=== PATIENT | male | born 2000 | race Caucasian/White ===

== ENCOUNTER 2019-10-20 16:09 | Emergency (ER) | payer BC, SELFPAY ==
--- NOTE | ~2019-10-20 | XR_ITS ---
EXAMINATION: XR ankle LT min 3V EXAM DATE: 10/20/2019 16:56 INDICATION: Twisting injury, caught foot on step. TECHNIQUE: Left ankle frontal, lateral and oblique projections obtained and reviewed. There is no pr ior study for comparison. FINDINGS: The left ankle mortise appears intact. There are no acute fractures or dislocations ident ified. There is no subcutaneous gas. There is soft tissue swelling over the ankle anterolaterally. There are no radiopaque foreign bodies. IMPRESSION: 1. Left ankle exam without acute osseous findings. 2. Soft tissue swelling. Reviewed, dictated and finalized at location A.
[2019-10-20 16:25] VITALS: BP 138/70; PULSE 86; RESP 20; TEMP 36.9; O2SAT 100
--- NOTE | 2019-10-20 16:52 | ED.LOWEXIN ---
HPI - Extremity Injury (Lower) General Chief Complaint: Extremity Injury, Lower Stated Complaint: left ankle pain Time Seen by Provider: 10/20/19 16:55 Source: patient and RN notes reviewed Mode of arrival: ambulatory Limitations: no limitations History of Present Illness HPI Narrative: This is a 19 years old male presented office for evaluation of left ankle injury 10days ago. He accidentally rolled his left ankle coming down the stair at home. He went to get it check at [facility] following the injury. He had Xray; was told no fracture and release back to work with restriction; however his boss told him that he either work or take off since there is no light duty at his workplace, so he continues to work. He stands about 8-10hours a day. He does not have a primary care doctor; that's why he is here. Related Data Home Medications Medication Instructions Recorded Confirmed No Home Medications 10/20/19 10/20/19 Allergies Allergy/AdvReac Type Severity Reaction Status Date / Time No Known Allergies Allergy Verified 10/20/19 16:56 Review of Systems Review of Systems: Narrative: CONSTITUTIONAL: Denies feeling ill CARDIOVASCULAR: Denies chest injury RESPIRATORY: Denies dyspnea GASTROINTESTINAL: Denies nausea, vomiting SKIN: Reports athletic foot and resolved from wearing steel boots all the time MUSCULOSKELETAL: Reports left ankle pain, swelling NEUROLOGIC: Denies head injury at the time of accident. PMFSH Family History Family History Other Diabetes mellitus Social History Social History Smoking status: Never smoker Alcohol intake: never Comments At time of signature, I agree with nursing past medical, surgical, social and family history. There is no relevant family history pertinent to the presenting complaint. Exam Narrative: Exam Narrative: GENERAL: This is a well-nourished, well-developed patient, in no apparent distress. CARDIOVASCULAR: Regular rate and rhythm without murmurs, gallops, or rubs. RESPIRATORY: Clear to auscultation. Breath sounds equal bilaterally. No wheezes, rales, or rhonchi. NEURO: awake, alert, and oriented to person, place and time. There were no obvious focal neurologic abnormalities. EXTREMITIES: The left ankle is swollen and tender over the lateral aspect but the skin is intact and there is no ligamentous instability. There is no deformity. The foot and toes are warm and well-perfused. Sensation to pain and light touch is intact. The skin is intact; no warmth to palpation. NO calf tenderness. Course Vital Signs Vital signs: Vital Signs Temperature 98.4 F 10/20/19 16:25 Pulse Rate 86 10/20/19 16:25 Respiratory Rate 20 10/20/19 16:25 Blood Pressure 138/70 10/20/19 16:25 Pulse Oximetry 100 10/20/19 16:25 Temperature 98.4 F 10/20/19 16:25 Pulse Rate 86 10/20/19 16:25 Respiratory Rate 20 10/20/19 16:25 Blood Pressure 138/70 10/20/19 16:25 Pulse Oximetry 100 10/20/19 16:25 MDM - Extremity Injury (Lower) MDM Narrative Medical decision making narrative: I recommend that he takes off work; so he can keep his foot elevated to see if the swelling improved. However if it does not improved then he will need to follow up with Ortho to rule out ligament/tendon injury. Discharge instructions reviewed with patient, as well as provided in writing per nursing staff. The instructions also include specific and strict return/GO TO THE ER as well as f/u information. All questions have been answered, and the patient deny any further questions with discharge and discharge plan. Differential Diagnosis Differential diagnosis: Likely ankle sprain and strain and ankle fracture Imaging Data Attestation: I personally reviewed and interpreted this imaging study as follows: My impression: see report Radiologist's impression: EXAMINATION:
--- NOTE | 2019-10-20 17:45 | PC.NURSE ---
1720 noted during stay pt informed staff he had been seen at onset of injury and had negative xray, stating alot of initial swelling may have prevented accurate reading.
== END 2019-10-20 17:20 | disposition home or self-care (01) ==
PROVIDERS: Emergency Provider Nurse Practitioner
DX: S99.912D Unspecified injury of left ankle, subsequent encounter (principal); W10.9XXD Fall (on) (from) unspecified stairs and steps, subsequent encounter
CPT/HCPCS: 73610; 99213; G0463

== ENCOUNTER 2020-04-28 19:11 | Emergency (ER) | payer BC, SELFPAY ==
[2020-04-28 19:40] VITALS: BP 153/113; PULSE 88; RESP 20; TEMP 36.7; O2SAT 99
--- NOTE | 2020-04-28 19:46 | ED.GENADULT ---
HPI - General Adult General Chief complaint: Burn/Smoke Inhalation Stated complaint: Burnt hand Source: patient Mode of arrival: ambulatory History of Present Illness HPI narrative: Jim is a previously healthy 19M that presented to the ED with a burn on his right palm. He was working on his car when he pushed up on the exhaust of his car. He had immediate pain on his right palm. Over the next several hours it become more painful and throbbing ensued. He could not take it so he came to the ED. He did not inhale any smoke and has no other injuries or concerns. Related Data Allergies Allergy/AdvReac Type Severity Reaction Status Date / Time No Known Allergies Allergy Verified 04/28/20 19:48 Review of Systems Constitutional: Constitutional: Reports no additional constitutional complaints, Denies chills and Denies fever(s) Eyes: Eyes: Reports no additional eye complaints ENT: Reports system reviewed and no additional complaints, except as documented Cardiovascular: Cardiovascular: Reports no additional cardiovascular complaints Respiratory: Respiratory: Reports no additional respiratory complaints Gastrointestinal: Gastrointestinal: Reports no additional gastrointestinal complaints Genitourinary: Genitourinary: Reports no additional male genitourinary complaints Musculoskeletal: Musculoskeletal: Reports no additional musculoskeletal complaints Integumentary/Breasts: Skin/Breast: Reports system reviewed and no additional complaints, except as docu Neurologic: Reports system reviewed and no additional complaints, except as documented Psychiatric: Psychiatric: Reports no additional psychiatric complaints Endocrine: Endocrine: Reports no additional endocrine complaints Hematologic/Lymphatic: Hematologic/Lymphatic: Reports no additional hematologic/lymphatic complaints Allergic/Immunologic: Allergic/Immunologic: Reports no additional allergic/immunologic complaints [facility] Past Medical History Medical History Left ankle sprain Surgical History Surgical History History of elbow surgery (~2013) Family History Family History Unknown Stomach cancer Other Diabetes mellitus Social History Social History Smoking status: Never smoker Alcohol intake: never Gender identity (if verbalized by the patient): Male Exam Const: General: no acute distress and alert Orientation/consciousness: patient oriented x3 Limitations: No altered mental status HENMT: Head: normal to inspection Eyes: Pupils: Equal, round and reactive pupils present Neck: Neck: normal visual inspection Resp: Effort & Inspection: normal respiratory effort, not labored and not tachypneic Cardio: Rate: regular rate Skin: Other: His right palm was swollen with some blisters forming and was very TTP. Neuro: General: patient oriented x3 and moves all extremities Other: Had sensation in all his fingers and could wiggle all of them. Psych: Mental Status: mental status grossly normal Course Course Emergency Course: Jim was evaluated. Morphine was ordered for pain control before washing with soap and water. It was treated with antibiotic ointment and wraped. He was discharged with pain meds to f/u with his PCP. Vital Signs Vital signs: Vital Signs Temperature 98.0 F 04/28/20 19:40 Pulse Rate 88 04/28/20 19:40 Respiratory Rate 04/28/20 19:40 Blood Pressure 153/113 H 04/28/20 19:40 Pulse Oximetry 99 04/28/20 19:40 Temperature 98.0 F 04/28/20 19:40 Pulse Rate 88 04/28/20 19:40 Respiratory Rate 20 04/28/20 19:40 Blood Pressure 153/113 H 04/28/20 19:40 Pulse Oximetry 99 04/28/20 19:40 Medical Decision Making Vital Signs Vital Signs: Vital Signs Temperature 98.0 F
[2020-04-28] MEDS: MORPHINE SULFATE (*CRX) 4 MG/ML INJ IM (19:54)
[2020-04-28] MEDS: NEOMYCIN/POLYMYXIN/BACITRACIN OINTMENT PACKET 4 PACKET (20:39)
[2020-04-28 20:56] VITALS: BP 155/103; PULSE 84; RESP 20; O2SAT 99
== END 2020-04-28 20:57 | disposition home or self-care (01) ==
PROVIDERS: Emergency Provider Family Medicine
DX: T23.251A Burn of second degree of right palm, initial encounter (principal); X19.XXXA Contact with other heat and hot substances, initial encounter
CPT/HCPCS: 16020; 96372; 99283; J2270

== ENCOUNTER 2021-12-18 21:14 | Emergency (ER) | payer BC, SELFPAY ==
[2021-12-18] VITALS (20 sets, daily range): BP systolic 119–163; BP diastolic 72–96; PULSE 95–130; RESP 10–31; TEMP 37.2–37.6; O2SAT 91–100
--- NOTE | ~2021-12-18 | XR_ITS ---
EXAMINATION: XR chest 1V portable Exam Date/Time: 12/18/2021 21:30 CDT HISTORY: fever, cough, SOB onset this A.M. Comparison: None available. RESULT: Lines, tubes, and devices: None. Lungs and pleura: Clear. Cardiomediastinal silhouette: Normal. Other: No acute osseous or upper abdominal finding. Right sixth rib is misaligned the remaining righ t-sided ribs, possibly due to old healed fracture, congenital deformity, or postsurgical change. IMPRESSION: No acute cardiopulmonary process. Reviewed, dictated and finalized at location K.
--- NOTE | 2021-12-18 21:21 | ECG_ITS ---
Measurements Intervals [place] Rate: 108 P: 3 VA: 132 QRS: -4 QRSD: 102 T: 7 QT: 309 QTc: 416 Interpretive Statements SINUS TACHYCARDIA POOR R-WAVE PROGRESSION VOLTAGE CRITERIA FOR LVH [MEETS CRITERIA IN ONE OF: R(aVL), S(V1), R(V5), R(V5/V6)+S(V1)] NONSPECIFIC ST ABNORMALITY NO PREVIOUS ECG AVAILABLE FOR COMPARISON Electronically Signed On 12-19-2021 14:17:39 CDT by Lazaro Brenner M.D.
[2021-12-18 21:41] LABS: Basophils Percent Auto 0.4 % (0.2-1.2); Eosinophils Absolute Auto 0.1 K/mm3 (0-0.3); Eosinophils Percent Auto 1.9 % (0-4.4); Hematocrit 42.7 % (42.0-52.0); Hemoglobin 14.5 g/dL (14.0-18.0); Immature Granulocyte Absolute 0.03 K/mm3 (0.00-0.031); Immature Granulocyte Percent A 0.4 % (0-0.5); Lymphocytes Absolute Auto 1.35 K/mm3 (0.9-3.2); Lymphocytes Percent Auto 19.3 % (18.3-44.2); Mean Corpuscular Hemoglobin 28.7 pg (26-34); Mean Corpuscular Volume 84.6 fl (80-100); Mean Platelet Volume 10.4 fl (7.4-10.4); Monocytes Absolute Auto 1.5 K/mm3 (0.1-0.6); Monocytes Percent Auto 21.5 % (2.6-8.5); Neutrophils Absolute Auto 3.9 K/mm3 (1.3-6.7); Neutrophils Percent Auto 56.5 % (45.5-73.1); Platelet Count Result 247 k/mm3 (150-375); Red Blood Count 5.05 M/mm3 (4.6-6.20); Red Cell Distribution Width 12.2 % (11.5-14.5)
--- NOTE | 2021-12-18 21:44 | ED.FEVER ---
HPI - Fever General Chief Complaint: Fever Stated Complaint: sob Time Seen by Provider: 12/18/21 21:29 History of Present Illness HPI Narrative: 21-year-old male presented the emergency department for evaluation of headache cough and fatigue. Patient states his symptoms did start today. Patient is not vaccinated against COVID but denies any known COVID exposures. Patient states he did have a fever prior to arrival but it did resolve. Related Data Allergies Allergy/AdvReac Type Severity Reaction Status Date / Time No Known Allergies Allergy Verified 12/18/21 21:54 Review of Systems Review of Systems: CONSTITUTIONAL: Fever and chills and generalized weakness EYES: Denies visual changes, redness, or discharge. ENT: Denies rhinorrhea, congestion, sore throat, or otalgia. CARDIOVASCULAR: Denies chest pain, palpitations, or edema. RESPIRATORY: Shortness of breath GASTROINTESTINAL: Denies abdominal pain, nausea, vomiting, or diarrhea. GENITOURINARY: Denies dysuria or hematuria. SKIN: Denies rash or itching. MUSCULOSKELETAL: Denies back pain, joint pain, or myalgia. NEUROLOGIC: Denies headache, numbness, or weakness. [facility] Past Medical History Medical History Left ankle sprain Surgical History Surgical History History of elbow surgery (~2013) Family History Family History Unknown Stomach cancer Other Diabetes mellitus Social History Social History Smoking status: Never smoker Alcohol intake: never Gender identity (if verbalized by the patient): Male Exam Narrative: APPEARANCE: Well appearing, no pain, no distress, well-nourished. HEAD: normocephalic, atraumatic. EYES: PERRLA/EOMI, conjunctivae clear. NOSE: Normal no drainage EARS:TMS clear with good light reflex. THROAT: Pharynx clear, no exudate. NECK: Supple. No adenopathy, no masses. RESPIRATORY: Airway patent, respirations nonlabored. Clear to auscultation bilaterally, no rales, rhonchi, wheezing. CARDIOVASCULAR: Tachycardia ABDOMINAL: Soft, nontender, nondistended, normal bowel sounds MUSCULOSKELETAL: Moves all extremities. Strength/ROM intact, No edema, No calf tenderness. NEURO: Alert. Cranial nerves II through XII intact. Grossly intact SKIN: Warm, dry. 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 Patient's tachycardia did resolve with rehydration. Patient was updated the results of his work-up and plan for treatment. All question concerns were addressed. Vital Signs Vital signs: Vital Signs Pulse Oximetry 97 12/18/21 21:20 Temperature 98.9 F 12/18/21 23:17 Pulse Rate 99 12/18/21 23:17 Respiratory Rate 22 H 12/18/21 23:17 Blood Pressure 119/72 12/18/21 23:17 Pulse Oximetry 97 12/18/21 23:17 MDM - Fever Lab Data Attestation: I reviewed the patient's lab results. Result diagrams: 12/18/21 21:35 12/18/21 21:35 Labs: Lab Results 12/18/21 12/18/21 12/18/21 Range/Units 21:35 21:35 21:35 WBC 7.0 (4.5-10.0) K/mm3 RBC 5.05 (4.6-6.20) M/mm3 Hgb 14.5 (14.0-18.0) g/dL Hct 42.7 (42.0-52.0) % MCV 84.6 (80-100) fl MCH 28.7 (26-34) pg MCHC 34.0 (32-36) g/dl RDW 12.2 (11.5-14.5) % Plt Count 247 (150-375) k/mm3 MPV 10.4 (7.4-10.4) fl Immature Gran % (Auto) 0.4 (0-0.5) % Neut % (Auto) 56.5 (45.5-73.1) % Lymph % (Auto) 19.3 (18.3-44.2) % Bullock % (Auto) 21.5 H (2.6-8.5) % Eos % (Auto) 1.9 (0-4.4) % Baso % (Auto) 0.4 (0.2-1.2) % Lymph # (Auto) 1.35 (0.9-3.2) K/mm3 Bullock # (Auto) 1.5 H (0.1-0.6) K/mm3 Eos # (Auto) 0.1 (0-0.3) K/mm3 Baso # (Auto) 0.0 (0.0-0.1) K/mm3 Abs Immat Gran (auto) 0.03 (0.00-0.031) K/mm3 Absolute Marika
[2021-12-18] MEDS: ALBUTEROL SULFATE NEB 2.5 MG/3 ML INH 5 MG INHALATION (21:55)
[2021-12-18 22:03] LABS: Alanine Aminotransferase 45 U/L (6-50); Albumin Level 4.6 g/dL (3.5-5.1); Alkaline Phosphatase 55 U/L (38-126); Anion Gap 14 mmol/L (8-16); Aspartate Amino Transferase 35 U/L (17-59); Bilirubin,Total 0.6 mg/dL (0.2-1.3); Blood Urea Nitrogen 13 mg/dL (9-20); Calcium 9.3 mg/dL (8.4-10.2); Carbon Dioxide 23 mmol/L (22-30); Chloride 97 mmol/L (98-107); Estimated CRCL calculation 148 ml/min; Estimated Glomerular Filt Rate > 60; Glucose 113 mg/dL (65-110); Potassium 3.5 mmol/L (3.4-5.0); Sodium 134 mmol/L (137-145)
[2021-12-18] MEDS: SODIUM CHLORIDE 0.9% IV 1,000 ML 999 ML IV CONT (22:18)
[2021-12-18 22:20] LABS: Influenza A QL RT-PCR Negative (Negative); Influenza B QL RT-PCR Negative (Negative); SARS-CoV-2 RNA PCR Positive
== END 2021-12-18 23:22 | disposition home or self-care (01) ==
LOC: ANHED 22:56
PROVIDERS: Emergency Medicine; Emergency Provider Emergency Medicine
DX: U07.1 COVID-19 (principal); Z28.310 Unvaccinated for COVID-19; R00.0 Tachycardia, unspecified; R94.31 Abnormal electrocardiogram [ECG] [EKG]
CPT/HCPCS: 36415; 71045; 80053; 85025; 87502; 93005; 94640; 96374; 99284; C9803; J0131; J7030; U0003; U0005

== ENCOUNTER 2022-01-13 02:43 | Emergency (ER) | payer BC, SELFPAY ==
--- NOTE | ~2022-01-13 | CT_ITS ---
EXAMINATION: CT abdomen pelvis w con DATE: 01/13/2022 05:16 INDICATION: Left lower quadrant abdominal pain. TECHNIQUE: Computed tomography (CT) of the abdomen and pelvis was performed with 100 mL Omnipaque 350 intravenous contrast. Automated exposure control and iterative reconstruction technique were employe d. The dose-length product was 1554.37 mGy-cm. COMPARISON: None. FINDINGS: The visualized portions of the lung bases are clear without pneumonia or pleural effusion. The heart size is normal. No pericardial effusion. The liver, gallbladder, spleen, pancreas, adrenal glands, and kidneys are normal. There is fat stranding around a diverticulum of the descending colon, consistent with diverticulitis. There is trace fluid in left paracolic gutter. There are no dilated loops of bowel. The appendix is normal. There are no pathologically enlarged lymph nodes. There is no free intraperitoneal fluid. There is mild thoracolumbar spondylosis. IMPRESSION: 1. Diverticulitis of descending colon. No perforation or abscess. Reviewed, dictated and finalized at location A.
[2022-01-13 02:57] VITALS: BP 130/77; PULSE 106; RESP 20; TEMP 36.3; O2SAT 97
[2022-01-13 03:17] LABS: Basophils Absolute Auto 0.1 K/mm3 (0.0-0.1); Basophils Percent Auto 0.3 % (0.2-1.2); Eosinophils Absolute Auto 0.1 K/mm3 (0-0.3); Eosinophils Percent Auto 0.6 % (0-4.4); Hematocrit 41.6 % (42.0-52.0); Hemoglobin 13.8 g/dL (14.0-18.0); Immature Granulocyte Percent A 0.6 % (0-0.5); Lymphocytes Absolute Auto 2.34 K/mm3 (0.9-3.2); Lymphocytes Percent Auto 15.1 % (18.3-44.2); Mean Corpuscular HGB Conc 33.2 g/dl (32-36); Mean Corpuscular Hemoglobin 28.8 pg (26-34); Mean Corpuscular Volume 86.7 fl (80-100); Mean Platelet Volume 10.1 fl (7.4-10.4); Monocytes Absolute Auto 1.5 K/mm3 (0.1-0.6); Monocytes Percent Auto 9.6 % (2.6-8.5); Neutrophils Absolute Auto 11.4 K/mm3 (1.3-6.7); Neutrophils Percent Auto 73.8 % (45.5-73.1); Platelet Count Result 274 k/mm3 (150-375); Red Cell Distribution Width 12.2 % (11.5-14.5); White Blood Count 15.5 K/mm3 (4.5-10.0)
[2022-01-13 03:18] LABS: Appearance Urine Clear (Clear); Bilirubin Urine Negative (Negative); Blood Urine Negative (Negative); Color Urine Yellow (Yellow); Glucose Urine UA Negative (Negative); Ketones Urine Negative (Negative); Leukocyte Esterase Ur Negative LEU/UL (Negative); Nitrate Urine Negative (Negative); Protein Urine Negative (Negative); Specific Grav Ur 1.025 (1.001-1.035); Urobilinogen Urine 0.2 mg/dL (<2.0); pH Urine 5.5 (5.0-9.0)
[2022-01-13 03:26] LABS: Alanine Aminotransferase 35 U/L (6-50); Albumin Level 4.1 g/dL (3.5-5.1); Alkaline Phosphatase 62 U/L (38-126); Anion Gap 11 mmol/L (8-16); Aspartate Amino Transferase 23 U/L (17-59); Bilirubin,Total 0.9 mg/dL (0.2-1.3); Blood Urea Nitrogen 12 mg/dL (9-20); Calcium 9.1 mg/dL (8.4-10.2); Carbon Dioxide 21 mmol/L (22-30); Chloride 105 mmol/L (98-107); Estimated CRCL calculation 188 ml/min; Estimated Glomerular Filt Rate > 60; Glucose 121 mg/dL (65-110); Potassium 3.8 mmol/L (3.4-5.0); Sodium 137 mmol/L (137-145)
[2022-01-13 03:31] LABS: Mucus Urine Rare /lpf; RBC Urine 0-2 /hpf (0-2); WBC Urine 0-3 /hpf
[2022-01-13 03:35] LABS: Add Urine Microscopic? NO
[2022-01-13] MEDS: MORPHINE SULFATE (*CRX) 4 MG/ML INJ IV PUSH (04:35)
[2022-01-13] MEDS: ONDANSETRON INJ 4 MG/2 ML VIAL IV PUSH (04:38)
[2022-01-13] MEDS: SODIUM CHLORIDE 0.9% IV 1,000 ML 999 ML IV CONT (04:39)
--- NOTE | 2022-01-13 05:32 | ED.GENADULT ---
HPI - General Adult General Chief complaint: Abdominal Pain Stated complaint: Left side pain Time Seen by Provider: 01/13/22 04:04 History of Present Illness HPI narrative: Patient 21-year-old gentleman who presents the emergency department with chief complaint of left lower quadrant abdominal pain. The patient reports approximately 3 days ago he started having pain in the left lower quadrant is been gradually worsening. The patient states the pain is worse with movement and improved with rest patient reports has been sweating and has been diaphoretic at times. Patient states he is concerned that he may have an infection inside of his abdomen patient states he is concerned that he may even have appendicitis did report that he had a family member that had appendicitis that ended up being on the left side of his abdomen. Related Data Allergies Allergy/AdvReac Type Severity Reaction Status Date / Time No Known Allergies Allergy Verified 01/13/22 03:00 Review of Systems Review of Systems: A 10 system review of systems was completed on the patient and is negative except for what is stated in the HPI. Nursing and ancillary documentation was reviewed. [facility] Past Medical History Medical History Left ankle sprain Surgical History Surgical History History of elbow surgery (~2013) Family History Family History Unknown Stomach cancer Other Diabetes mellitus Social History Social History Smoking status: Never smoker Alcohol intake: never Gender identity (if verbalized by the patient): Male Exam Narrative: GENERAL: Well-appearing, well-nourished, and in no acute distress. HEAD: Normocephalic, atraumatic. EYES: PERRLA and EOMI. ENT: Nares clear, no rhinorrhea or epistaxis. Mucous membranes moist. NECK: Supple. CHEST: Clear to auscultation. No respiratory distress. HEART: Regular rate and rhythm. No murmur heard. Normal peripheral pulses. ABDOMEN: Soft, tenderness to palpation the left lower quadrant, nondistended, normal active bowel sounds. EXTREMITIES: Normal range of motion. No edema. SKIN: Warm, dry, no rash. NEURO: No focal deficits. Alert and oriented x3. PSYCH: Normal mood and affect. Course Course Emergency Course: CT scan showed evidence of acute diverticulitis. Patient is feeling much better and would like to try outpatient therapy. Vital Signs Vital signs: Vital Signs Temperature 36.3 C L 01/13/22 02:57 Pulse Rate 106 H 01/13/22 02:57 Respiratory Rate 20 01/13/22 02:57 Blood Pressure 130/77 01/13/22 02:57 Pulse Oximetry 97 01/13/22 02:57 Oxygen Delivery Room Air 01/13/22 02:57 Temperature 36.3 C L 01/13/22 02:57 Pulse Rate 94 01/13/22 06:09 Respiratory Rate 18 01/13/22 06:09 Blood Pressure 140/88 01/13/22 06:09 Pulse Oximetry 98 01/13/22 06:09 Oxygen Delivery Room Air 01/13/22 02:57 Medical Decision Making Vital Signs Vital Signs: Vital Signs Temperature 36.3 C L 01/13/22 02:57 Pulse Rate 106 H 01/13/22 02:57 Respiratory Rate 20 01/13/22 02:57 Blood Pressure 130/77 01/13/22 02:57 Pulse Oximetry 97 01/13/22 02:57 Oxygen Delivery Room Air 01/13/22 02:57 Temperature 36.3 C L 01/13/22 02:57 Pulse Rate 94 01/13/22 06:09 Respiratory Rate 18 01/13/22 06:09 Blood Pressure 140/88 01/13/22 06:09 Pulse Oximetry 98 01/13/22 06:09 Oxygen Delivery Room Air 01/13/22 02:57 Lab Data Result diagrams: 01/13/22 03:05 01/13/22 03:05 Labs: Lab Results 01/13/22 01/13/22 01/13/22 Range/Units 03:05 03:05 03:09 WBC 15.5 H (4.5-10.0) K/mm3 RBC 4.80 (4.6-6.20) M/mm3 Hgb 13.8 L (14.0-18.0) g/dL Hct 41.6 L (42.0-52.0)
[2022-01-13 06:09] VITALS: BP 140/88; PULSE 94; RESP 18; O2SAT 98
[2022-01-13 07:24] VITALS: BP 133/82; PULSE 88; RESP 16; O2SAT 97
== END 2022-01-13 07:27 | disposition home or self-care (01) ==
PROVIDERS: Emergency Provider Emergency Medicine
DX: K57.32 Diverticulitis of large intestine without perforation or abscess without bleeding (principal)
CPT/HCPCS: 36415; 74177; 80053; 81003; 85025; 96361; 96365; 96375; 99284; J2270; J2405; J2543; J7030; Q9967

== ENCOUNTER 2022-10-01 09:27 | Emergency (ER) | payer BC, SELFPAY ==
--- NOTE | ~2022-10-01 | XR_ITS ---
EXAMINATION: XR ankle RT min 3V INDICATION: Right ankle pain TECHNIQUE: Four views of the right ankle are obtained. COMPARISON: None available FINDINGS: Bone alignment is normal. There is no fracture. The joint spaces are normal. There is mild soft tissue swelling of ankle. IMPRESSION: 1. Soft tissue swelling without acute osseous abnormality. Reviewed, dictated and finalized at location A.
[2022-10-01 09:32] VITALS: BP 143/85; PULSE 105; RESP 20; TEMP 36.8; O2SAT 96
--- NOTE | 2022-10-01 09:59 | ED.GENADULT ---
HPI - General Adult General Chief complaint: Extremity Injury, Lower Stated complaint: Right ankle injury Source: patient Mode of arrival: ambulatory Limitations: no limitations History of Present Illness HPI narrative: Patient presents for evaluation of right ankle pain. Symptom onset yesterday. He was playing kickball and stepped in a hole. He twisted his right ankle in the process. He now has bruising and swelling in the affected area. He rates his pain 8/10 severity. He has numbness and tingling in his right toes. He has not taken any medication for his pain. Related Data Home Medications Medication Instructions Recorded Confirmed No Home Medications 10/01/22 10/01/22 Allergies Allergy/AdvReac Type Severity Reaction Status Date / Time No Known Allergies Allergy Verified 10/01/22 09:43 Review of Systems Review of Systems: CONSTITUTIONAL: Denies fever, chills, or sweats. EYES: Denies visual changes, redness, or discharge. ENT: Denies rhinorrhea, congestion, sore throat, or otalgia. CARDIOVASCULAR: Reports swelling in right ankle. Denies chest pain, palpitations RESPIRATORY: Denies cough or dyspnea. GASTROINTESTINAL: Denies abdominal pain, nausea, vomiting, or diarrhea. GENITOURINARY: Denies dysuria or hematuria. SKIN: Reports bruising in the right ankle MUSCULOSKELETAL: Reports pain and swelling in the right ankle NEUROLOGIC: Reports numbness and tingling in the right toes. Denies headache, numbness, dizziness, or weakness. PSYCHIATRIC: Denies anxiety or depression. PMFSH Past Medical History Medical History Left ankle sprain Surgical History Surgical History History of elbow surgery (~2013) Family History Family History Unknown Stomach cancer Other Diabetes mellitus Social History Social History Smoking status: Never smoker Alcohol intake: never Substance use: never Living arrangements: with family Gender identity (if verbalized by the patient): Male Spiritual care concerns: No Exam Narrative: GENERAL: Well-appearing, well-nourished, and in no acute distress. HEAD: Normocephalic, atraumatic. EYES: PERRLA and EOMI. ENT: Nares clear, no rhinorrhea or epistaxis. Mucous membranes moist. Oropharynx without tonsillar hypertrophy exudate or other lesions. Bilateral TMs pearly grimes nonbulging NECK: Supple. No adenopathy or masses. No carotid bruits or JVD CHEST: Clear to auscultation. No respiratory distress. No wheezes rales or rhonchi HEART: Regular rate and rhythm. No murmur heard. Normal peripheral pulses. ABDOMEN: Soft, nontender, nondistended, normal active bowel sounds. EXTREMITIES:There is swelling in right ankle. Decreased ROM of right ankle. Tenderness over lateral aspect of right ankle. SKIN: Ecchymosis noted to the lateral aspect of the right ankle NEURO: No focal deficits. Alert and oriented x3. PSYCH: Normal mood and affect. Course Course Emergency Course: This is a 22-year-old male who presented for evaluation of right ankle pain. X-ray negative for fracture. Offered to place him in OCL, which he declined. He was provided with gordo wrap and crutches. Will have him follow-up with orthopedics to ensure no occult fracture. Declined analgesics upon discharge. He will take ibuprofen for pain. Go to ER for intractable pain or worsening symptoms. Patient in agreement with plan of care. Level of Care: Express Care Visit Vital Signs Vital signs: Vital Signs Temperature 36.8 C 10/01/22 09:32 Pulse Rate 105 H 10/01/22 09:32 Respiratory Rate 20 10/01/22 09:32 Blood Pressure 143/85 H 10/01/22 09:32 Pulse Oximetry 96 10/01/22 09:32 Oxygen Delivery Room Air 10/01/22 09:32 Temperature 36.
== END 2022-10-01 10:53 | disposition home or self-care (01) ==
PROVIDERS: Emergency Provider Nurse Practitioner
DX: S93.401A Sprain of unspecified ligament of right ankle, initial encounter (principal); X50.9XXA Other and unspecified overexertion or strenuous movements or postures, initial encounter; Y93.6A Activity, physical games generally associated with school recess, summer camp and children
CPT/HCPCS: 29515; 73610; 99213; G0463

== ENCOUNTER 2023-03-27 10:58 | Emergency (ER) | payer BC, SELFPAY ==
[2023-03-27] VITALS (9 sets, daily range): BP systolic 131–149; BP diastolic 76–108; PULSE 67–90; RESP 15–18; TEMP 36.3–36.6; O2SAT 97–99
--- NOTE | ~2023-03-27 | CT_ITS ---
. EXAMINATION: CT abdomen pelvis w con DATE: 03/27/2023 14:38 INDICATION: Abdominal pain TECHNIQUE: Computed tomography (CT) of the abdomen and pelvis was performed with 100 CC Omnipaque 350 intravenous contrast. Automated exposure control and iterative reconstruction technique were employe d. Exam dose: 1663.33 mGy-cm total exam DLP. COMPARISON: 01/13/2022 CT abdomen pelvis FINDINGS: There is minimal atelectasis at the right lung base. Normal heart size. No pericardial or pleural effusion. Diffuse hepatic steatosis. No hepatic, splenic, pancreatic, adrenal or renal space occupying mass l esion is detected. No urinary tract calculus or hydronephrosis. Normal appendix. Normal appendix. There are scattered left and right colon diverticula. No CT evidence of diverticulitis. No bowel ob struction or free air. Very small fat containing umbilical hernia. No suspicious osteolytic or osteoblastic lesions. IMPRESSION: Mild colonic diverticulosis Hepatic steatosis Reviewed, dictated and finalized at [facility]. Reviewed, dictated and finalized at [facility]. EEN OPERATOR
[2023-03-27 11:24] LABS: Basophils Percent Auto 0.6 % (0.2-1.2); Eosinophils Absolute Auto 0.1 K/mm3 (0-0.3); Eosinophils Percent Auto 0.8 % (0-4.4); Hematocrit 43.3 % (42.0-52.0); Hemoglobin 14.6 g/dL (14.0-18.0); Immature Granulocyte Absolute 0.03 K/mm3 (0.00-0.031); Immature Granulocyte Percent A 0.5 % (0-0.5); Lymphocytes Absolute Auto 2.96 K/mm3 (0.9-3.2); Lymphocytes Percent Auto 47.1 % (18.3-44.2); Mean Corpuscular HGB Conc 33.7 g/dl (32-36); Mean Corpuscular Hemoglobin 28.1 pg (26-34); Mean Corpuscular Volume 83.4 fl (80-100); Mean Platelet Volume 10.4 fl (7.4-10.4); Monocytes Absolute Auto 0.5 K/mm3 (0.1-0.6); Monocytes Percent Auto 7.6 % (2.6-8.5); Neutrophils Absolute Auto 2.7 K/mm3 (1.3-6.7); Neutrophils Percent Auto 43.4 % (45.5-73.1); Platelet Count Result 295 k/mm3 (150-375); Red Blood Count 5.19 M/mm3 (4.6-6.20); Red Cell Distribution Width 11.9 % (11.5-14.5); White Blood Count 6.3 K/mm3 (4.5-10.0)
[2023-03-27 11:36] LABS: Appearance Urine Clear (Clear); Bilirubin Urine Negative (Negative); Blood Urine Negative (Negative); Color Urine Yellow (Yellow); Glucose Urine UA Negative (Negative); Ketones Urine Negative (Negative); Leukocyte Esterase Ur Negative LEU/UL (Negative); Nitrate Urine Negative (Negative); Protein Urine Negative (Negative); Specific Grav Ur 1.021 (1.001-1.035); Urobilinogen Urine 0.2 mg/dL (<2.0)
[2023-03-27 11:42] LABS: Alanine Aminotransferase 46 U/L (6-50); Albumin Level 4.5 g/dL (3.5-5.1); Alkaline Phosphatase 55 U/L (38-126); Anion Gap 12 mmol/L (8-16); Aspartate Amino Transferase 31 U/L (17-59); Bilirubin,Total 0.7 mg/dL (0.2-1.3); Blood Urea Nitrogen 15 mg/dL (9-20); Calcium 9.5 mg/dL (8.4-10.2); Carbon Dioxide 22 mmol/L (22-30); Chloride 105 mmol/L (98-107); Estimated CRCL calculation 205 ml/min; Estimated Glomerular Filt Rate > 60; Glucose 98 mg/dL (65-110); Lipase 40 U/L (23-300); Potassium 3.9 mmol/L (3.4-5.0); Sodium 139 mmol/L (137-145)
[2023-03-27 11:48] LABS: Add Urine Microscopic? NO
--- NOTE | 2023-03-27 13:36 | ED.GENADULT ---
HPI - General Adult General Chief complaint: Abdominal Pain <Emily Peralta September, - Last Filed: 03/27/23 19:18> Stated complaint: diverticulitis <Emily Peralta September, - Last Filed: 03/27/23 19:18> Time Seen by Provider: 03/27/23 18:36 <Emily Peralta September, - Last Filed: 03/27/23 19:18> History of Present Illness HPI narrative: Jim Chavez is a 22 y/o male with PMHx of Diverticulitis and he presents today with complaints of left lower abdominal pain that started two days ago, he states it feels like previous diverticulitis. Denies nausea/vomiting/ last ate was yesterday. Last BM was last night at around 1999. He admits to being febrile this AM 99.2 <Emily Peralta September, - Last Filed: 03/27/23 19:18> Jim Chavez is a 22 y/o male with PMHx of Diverticulitis and he presents today with complaints of left lower abdominal pain that started two days ago, he states it feels like previous diverticulitis. Denies nausea/vomiting/ last ate was yesterday. Last BM was last night at around 1999. Patient denies any chest pain, shortness of breath, nausea, vomiting, dysuria, hematuria, constipation, diarrhea, melena, hematochezia, fevers or chills. He also denies any headaches, dizziness, lightheadedness, blurry visions, dizziness, focal weakness, numbness and or tingling. There are no other modifying, alleviating, or precipitating factors at this time. <Anup Guerrero MD - Last Filed: 03/27/23 19:17> Related Data Home medications: Home Medications Medication Instructions Recorded Confirmed No Home Medications 10/01/22 10/16/22 <Emily Peralta September, - Last Filed: 03/27/23 19:18> Allergies/adverse reactions: Allergies Allergy/AdvReac Type Severity Reaction Status Date / Time No Known Allergies Allergy Verified 10/16/22 10:20 <Emily Peralta September, - Last Filed: 03/27/23 19:18> Review of Systems Review of Systems: All systems are reviewed and are negative unless stated otherwise in the HPI. <Anup Guerrero MD - Last Filed: 03/27/23 19:17> PMFSH Past Medical History Medical History: Medical History Left ankle sprain <Emily Zuluaga, [employer] INSPECTOR - Last Filed: 03/27/23 19:18> Surgical History Surgical History: Surgical History History of elbow surgery (~2013) <Emily Peralta September, [employer] INSPECTOR - Last Filed: 03/27/23 19:18> Family History Family History: Family History Unknown Stomach cancer Other Diabetes mellitus <Emily Peralta September, [employer] INSPECTOR - Last Filed: 03/27/23 19:18> Social History Social History: Social History Smoking status: Never smoker Alcohol intake: never Substance use: never Lack of Transportation: No Lack of Food: Never True Current Housing: I Have Housing Concerned About Future Housing: No Difficulty Paying Gas/Electric Bills: No Difficulty Paying for Meds: No Currently Unemployed: No Education: High School Diploma/GED Difficulty w/ Childcare or Family Care: No Living arrangements: with family Gender identity (if verbalized by the patient): Male Spiritual care concerns: No <Emily Peralta September, [employer] INSPECTOR - Last Filed: 03/27/23 19:18> Exam Narrative: General: Alert, awake, afebrile, in no acute distress. HEENT: PERRL, no rhinorrhea, no post nasal drip, oropharynx clear. Neck: Trachea midline, no JVD, no lymphadenopathy. Cardiovascular: Regular rate and rhythm, no murmurs, rubs or gallops, no peripheral edema. Respiratory: Clear to auscultation bilaterally, no tachypnea, no wheezing, no rhonchi, no rubs, no respiratory distress. Abdomen: Soft, mild tenderness to palpation over the left lower quadrant, nondistended, no rebound, no guarding, no peritoneal signs. Musculoskeletal: No joint swelling or deformity, normal muscle ton
[2023-03-27] MEDS: KETOROLAC 15 MG/ML VIAL (*BKC) IV PUSH (19:47)
== END 2023-03-27 20:00 | disposition home or self-care (01) ==
PROVIDERS: Student in an Organized Health Care Education/Training Program; Emergency Provider Emergency Medicine
DX: K57.90 Diverticulosis of intestine, part unspecified, without perforation or abscess without bleeding (principal)
CPT/HCPCS: 36415; 74177; 80053; 81003; 83690; 85025; 96374; 99284; J1885; Q9967

== ENCOUNTER 2023-11-11 11:20 | Emergency (ER) | payer BC, SELFPAY ==
[2023-11-11 11:32] VITALS: BP 147/87; PULSE 92; RESP 16; TEMP 36.8; O2SAT 98
--- NOTE | 2023-11-11 11:47 | ED.EXTPRO ---
HPI - Extremity Problem General Chief complaint: Extremity Problem,Nontraumatic Stated complaint: L LEG REDNESS/SWELLING Time Seen by Provider: 11/11/23 11:31 Source: patient and RN notes reviewed Mode of arrival: ambulatory Limitations: no limitations History of Present Illness HPI Narrative: Patient presents today complaining of 2 week history of intermittent redness, swelling, and pain to the left saul and the dorsum of his left foot. Patient works frequently and wears almost knee-high work boots which rubbed on his saul. He also has some athlete's foot to the left foot. No [id number] interventions prior to arrival. Denies pain or swelling in the calf area. History of MRSA in the Related Data Allergies Allergy/AdvReac Type Severity Reaction Status Date / Time No Known Allergies Allergy Verified 10/16/22 10:20 Review of Systems Review of Systems: CONSTITUTIONAL: Denies body aches, fever, chills, or sweats. EYES: Denies visual changes, redness, or discharge. ENT: Denies rhinorrhea, congestion, sore throat, or otalgia. CARDIOVASCULAR: Denies chest pain, palpitations, or edema. RESPIRATORY: Denies cough or dyspnea. GASTROINTESTINAL: Denies abdominal pain, nausea, vomiting, or diarrhea. GENITOURINARY: Denies dysuria or hematuria. SKIN: Redness, swelling, pain to the left leg and foot MUSCULOSKELETAL: Denies back pain, joint pain, or myalgia. NEUROLOGIC: Denies headache, numbness, tingling, or weakness. PSYCH: Denies depression or anxiety. [facility] Past Medical History Medical History Left ankle sprain Surgical History Surgical History History of elbow surgery (~2013) Family History Family History Unknown Stomach cancer Other Diabetes mellitus Social History Social History Smoking status: Never smoker Alcohol intake: never Substance use: never Lack of Transportation: No Lack of Food: Never True Current Housing: I Have Housing Concerned About Future Housing: No Difficulty Paying Gas/Electric Bills: No Difficulty Paying for Meds: No Currently Unemployed: No Education: High School Diploma/GED Difficulty w/ Childcare or Family Care: No Living arrangements: with family Gender identity (if verbalized by the patient): Male Spiritual care concerns: No Comments At time of signature, I have reviewed and agree with nursing past medical, surgical, social and family history unless otherwise noted. Please see nursing chart for further information. There is no relevant family history pertinent to the presenting complaint Exam Narrative: GENERAL: Well-appearing, well-nourished, and in no acute distress. HEAD: Normocephalic, atraumatic. EYES: EOMI. No redness or drainage. Conjunctivae normal. ENT: Mucous membranes pink and moist. NECK: Normal AROM. CHEST: No respiratory distress. EXTREMITIES: Normal range of motion. No edema. SKIN: Warm, dry, no rash. Capillary refill normal. Normal skin turgor. Left leg: Approx 10x7cm area of erythema and tenderness to the saul with scant localized edema. No edema or erythema to the calf. No tenderness to palpation of the calf. Patient has a 1 x 1 cm scab to the dorsum of the foot with mild surrounding erythema that is tender to palpation. Distal sensation intact in all 5 toes. Capillary refill normal. Pedal pulse is strong. Full range of motion of the toes and ankle without pain. NEURO: No focal deficits. Alert and oriented x3. Gait steady. PSYCH: Normal affect. No signs of depression or anxiety. Course Course Level of Care: Express Care Visit Vital Signs Vital signs: Vital Signs Temperature 98.2 F 11/11/23 11:32 Pulse Rate 92 11/11/23 11:32 Respiratory Rate 16 10/14
== END 2023-11-11 11:54 | disposition home or self-care (01) ==
PROVIDERS: Emergency Provider Nurse Practitioner
DX: L03.116 Cellulitis of left lower limb (principal); Z86.14 Personal history of Methicillin resistant Staphylococcus aureus infection
CPT/HCPCS: 99213; G0463

== ENCOUNTER 2025-04-25 10:10 | Emergency (ER) | payer BC, SELFPAY ==
[2025-04-25 10:23] VITALS: BP 127/107; PULSE 87; RESP 16; TEMP 36.8; O2SAT 99
--- NOTE | 2025-04-25 10:27 | ED_ITS ---
HPI - Male Genitourinary General Chief complaint: Skin/Abscess/Foreign Body Stated complaint: yeast infection? patient presents to the [facility] with complaints of red splotchy rash to the tip penis that began over the last days. Patient believes that he may have a Yeast infection. no history of yeast infection but noted that he has been deer hunting and staying at a property for a week at a time and unable to take showers. Noted he has brought white things to clean with the attending both take a true shower episodes of sweating sitting in deer stand. Related Data Allergies Allergy/AdvReac Type Severity Reaction Status Date / Time No Known Allergies Allergy Verified 04/25/25 10:22 Review of Systems Constitutional: Constitutional: Reports as per HPI, Denies chills, Denies fatigue, Denies fever(s) and Denies weakness Eyes: Eyes: Reports no additional eye complaints ENT: Reports system reviewed and no additional complaints, except as documented Cardiovascular: Cardiovascular: Reports no additional cardiovascular c omplaints Respiratory: Respiratory: Reports no additional respiratory complaints Gastrointestinal: Gastrointestinal: Reports no additional gastrointestinal complaints Genitourinary: Genitourinary: Reports as per HPI, Denies hematuria, Denies oliguria, Denies genital lesions, Denies dysuria, Denies penile discharge, Denies testicular pain, Denies urinary frequency and Denies urinary incontinence Comments: red rash to head of penis Musculoskeletal: Musculoskeletal: Reports no additional musculoskeletal complaints Integumentary/Breasts: Skin/Breast: Reports as per HPI, Denies pruritus, Denies erythema and Reports rash ( head of penis) Neurologic: Reports as per HPI, Denies numbness and Denies weakness Psychiatric: Psychiatric: Reports no additional psychiatric complaints Endocrine: Endocrine: Reports no additional endocrine complaints Hematologic/Lymphatic: Hematologic/Lymphatic: Reports no additional hematologic/lymphatic complaints Allergic/Immunologic: Allergic/Immunologic: Reports no additional allergic/immunologic complaints [facility] Past Medical History Medical History Left ankle sprain Surgical History Surgical History History of elbow surgery (~2013) Family History Family History Unknown Stomach cancer Other Diabetes mellitus Social History Social History Smoking status: Never smoker Alcohol intake: never Substance use: never Lack of Transportation: No Lack of Food: Never True Current Housing: I Have Housing Concerned About Future Housing: No Difficulty Paying Gas/Electric Bills: No Difficulty Paying for Meds: No Currently Unemployed: No Education: High School Diploma/GED Difficulty w/ Childcare or Family Care: No Living arrangements: with family Gender identity (if verbalized by the patient): Male Spiritual care concerns: No Exam Const: General: healthy appearing and no acute distress Nutritional Appearance: well nourished Limitations: no limitations Resp: Effort & Inspection: normal respiratory effort Auscultation: clear to auscultation bilaterally Cardio: Rate: regular rate Rhythm: regular rhythm : General: Yes bladder normal to palpation and Yes no CVA tenderness Male General Exam: No normal external exam ( diffuse erythematous plaque-like rash is noted to the head of penis. ) Penis: Yes circumcised Scrotum: scrotum normal Testes: Testes normal and epididymides normal Other: No active drainage or crusting from rash. exam performed with RN present in room Skin: General skin exam: normal color Rashes: rash noted Wounds: no wounds Neuro: General: patient oriented x3 and moves all extremities Speech: normal speech Gait exam (Neuro): Normal gait present Psych: Mental Status: mental status grossly normal Affect: normal affect Attitude: cooperative Course Course Level of Care: Express Care Visit Vital Signs Vital signs: Vital Signs Temperature 98.3 F 04/25/25 10:23 Pulse Rate 87 04/25/25 10:23 Respiratory Rate 16 04/25/25 10:23 Blood Pressure 127/107 H 04/25/25 10:23 Pulse Oximetry 99 04/25/25 10:23 Temperature 98.3 F 04/25/25 10:23 Pulse Rate 87 04/25/25 10:23 Respiratory Rate 16 04/25/25 10:23 Blood Pressure 127/107 H 04/25/25 10:23 Pulse Oximetry 99 04/25/25 10:23 MDM MDM Narrative Medical decision making narrative: likely yeast infection medications prescribed The patient was evaluated by myself in the express care. History is obtained from patient who is an independent historian and physical exam was performed. Available medical records were reviewed at this time. Exam findings show no acute concerns or changes; patient is non-toxic appearing and is in no distress. Patient is appropriate for outpatient treatment and follow-up. I have evaluated and discussed social determinants of health with the patient that could potentially impact subsequent diagnosis and treatment plans. Differential diagnosis and treatment plan were discussed with the patient. Patient agrees with discussion and after shared medical decision making agrees with plan of care. All questions were answered to the patient's satisfaction. Differential Diagnosis Differential Diagnosis: cellulitis, folliculitis, yeast infection, STD Medical Records I have reviewed the following patient records and this information was taken into consideration when formulating the assessment and plan.: previous labs, previous ER visits, previous hospitalizations and previous clinic visits Discharge Plan Discharge Clinical Impression: Candidal balanitis Patient Disposition: Home Condition: Stable Instructions: Antibiotic Form, Balanitis (ED), Skin Yeast Infection (ED) Additional Instructions: use a topical medication 3 times daily until rash is gone then continue to use this for another 24 hours. Keep area clean and dry as possible. Change underwear frequently if you become sweaty follow-up with primary care physician if symptoms not improved in 2-3 weeks or worsen Patient Language: Turkish Prescriptions: New nystatin 100,000 unit/gram cream 1 applic topical TID Qty: 60 0RF No Action sulfamethoxazole-trimethoprim [Bactrim DS] 800-160 mg tablet 1 tablet PO Q12H 10 Days Qty: 20 0RF Follow-up/Referrals: PHYSICIAN,ADMINISTRATIVE LIBRARY ASSISTANT [Primary Care Provider, Internal Medicine] Time of Disposition: 10:30
== END 2025-04-25 10:35 | disposition home or self-care (01) ==
PROVIDERS: Emergency Provider Nurse Practitioner Family
DX: N48.1 Balanitis (principal)
CPT/HCPCS: 99213; G0463